=== PATIENT | male | born 1955 | race Caucasian/White ===

== ENCOUNTER → 2016-11-14 | Outpatient (CLI) | payer BC ==
[~2016-11-14] MED LIST: ATV5 PO; SIMV40TA2
[2016-11-14 09:41] LABS: BASO % 0.1 %; BASO ABS # 0.01 K/uL (0-0.2); COMPLETE YES; EOS % 2.8 %; HEMATOCRIT 45.6 % (42-52); IG% 0.3 %; LYMPH % 30.6 %; LYMPH ABS # 2.32 K/uL (1.2-3.4); MEAN CELL VOLUME 88.2 fL (80-100); MEAN CORPUSCULAR HEMOGLOBIN 31.7 pg (25-34); MEAN PLATELET VOLUME 10.8 fL (7.4-10.4); NEUT % 59.2 %; PLATELET COUNT 228 K/uL (130-400); RED BLOOD COUNT 5.17 M/uL (4.7-6.1); WHITE BLOOD COUNT 7.57 K/uL (4.8-10.8)
[2016-11-14 09:54] LABS: ALT/SGPT 51 U/L (12-78); BLOOD UREA NITROGEN 17 mg/dl (7-18); BUN/CREATININE RATIO 18.1 (10-20); CALCIUM 9.6 mg/dl (8.5-10.1); CARBON DIOXIDE 26 mmol/L (21-32); CHLORIDE 105 mmol/L (98-107); CREATININE 0.96 mg/dl (0.60-1.40); GLUCOSE 220 mg/dl (70-99); POTASSIUM 4.4 mmol/L (3.5-5.1); SODIUM 141 mmol/L (136-145)
[2016-11-14 09:58] LABS: ALB/GLOB RATIO 1.4 (0.9-2); ALKALINE PHOSPHATASE 117 U/L (45-117); AST/SGOT 16 U/L (15-37); CHOLESTEROL 206 mg/dl (0-200); CHOLESTEROL/HDL RATIO 4.8; HDL CHOLESTEROL 43 mg/dl; LDL CHOLESTEROL CALCULATED 121 mg/dl; TRIGLYCERIDES 210 mg/dl (0-150); VERY LOW DENSITY LIPOPROT CALC 42 mg/dl
[2016-11-14 10:40] LABS: ESTIMATED AVERAGE GLUCOSE 180 mg/dl; HA1C FLAG Normal (Normal)
[2016-11-14 10:43] LABS: RATIO 5.7 mcg/mg (0-30.0)
== END | disposition home or self-care (01) ==
LOC: C.LAB1850 07:20
PROVIDERS: ATTEND Nurse Practitioner Family
DX: E78.00 Pure hypercholesterolemia, unspecified (principal); F41.9 Anxiety disorder, unspecified; E11.9 Type 2 diabetes mellitus without complications

== ENCOUNTER → 2017-06-22 | Outpatient (CLI) | payer BC ==
[2017-06-22 09:30] LABS: BASO % 0.3 %; BASO ABS # 0.02 K/uL (0-0.2); COMPLETE YES; EOS % 2.4 %; HEMATOCRIT 44.6 % (42-52); IG% 0.3 %; LYMPH % 30.9 %; LYMPH ABS # 2.04 K/uL (1.2-3.4); MEAN CELL VOLUME 89.9 fL (80-100); MEAN CORPUSCULAR HEMOGLOBIN 31.7 pg (25-34); MEAN CORPUSCULAR HGB CONC 35.2 g/dl (32-36); MEAN PLATELET VOLUME 10.3 fL (7.4-10.4); NEUT % 56.1 %; PLATELET COUNT 222 K/uL (130-400); RED BLOOD COUNT 4.96 M/uL (4.7-6.1)
[2017-06-22 09:54] LABS: ALT/SGPT 57 U/L (12-78); BLOOD UREA NITROGEN 17 mg/dl (7-18); BUN/CREATININE RATIO 18.4 (10-20); CALCIUM 9.4 mg/dl (8.5-10.1); CARBON DIOXIDE 29 mmol/L (21-32); CHLORIDE 106 mmol/L (98-107); CHOLESTEROL 178 mg/dl (0-200); CREATININE 0.92 mg/dl (0.60-1.40); GLUCOSE 166 mg/dl (70-99); POTASSIUM 4.1 mmol/L (3.5-5.1); SODIUM 140 mmol/L (136-145); TRIGLYCERIDES 133 mg/dl (0-150); VERY LOW DENSITY LIPOPROT CALC 27 mg/dl
[2017-06-22 10:04] LABS: ALB/GLOB RATIO 1.5 (0.9-2); ALKALINE PHOSPHATASE 105 U/L (45-117); AST/SGOT 23 U/L (15-37); CHOLESTEROL/HDL RATIO 3.9; HDL CHOLESTEROL 46 mg/dl; LDL CHOLESTEROL CALCULATED 105 mg/dl
[2017-06-22 12:28] LABS: ESTIMATED AVERAGE GLUCOSE 166 mg/dl; HA1C FLAG Normal (Normal)
--- NOTE | 2017-07-06 10:46 | CODING QUERY MEDICAL NECESSITY ---
SUPPORTING DIAGNOSIS NEEDED Dr. Willson, A supporting diagnosis is required for the test/procedure performed on this patient in order for us to be reimbursed by the patient's insurance. Please provide a supporting diagnosis for the following test/procedure listed below next to the test name along with your signature. *If there is no additional diagnosis for this patient that would support the following test/procedure please document that below next to the test/procedure. Test(s)/Procedure(s) that require a supporting diagnosis: * ([id number]) VITAMIN D ASSAY DIAGNOSIS: DATE OF SERVICE: 06/22/17 Provider Signature: Date: Thank you Eduardo Garcia [facility] Information Management Once completed, please kindly fax back to [phone] For questions please call [phone]
== END | disposition home or self-care (01) ==
LOC: C.LAB1850 07:54
PROVIDERS: ATTEND Family Medicine
DX: E11.9 Type 2 diabetes mellitus without complications (principal); R53.83 Other fatigue; E55.9 Vitamin D deficiency, unspecified